=== PATIENT | male | born 1970 | race Hispanic/Latino ===

== ENCOUNTER 2017-08-20 21:59 | Emergency (ER) | payer SELFPAY ==
[~2017-08-20] VITALS: Ht 165.1 cm; Wt 107.0 kg
[~2017-08-20 21:59] MED LIST: ASPIR 8181 MG PO; COREG12.5 MG PO; GLIMEPIRIDE2 MG PO; LASIX40 MG PO; LISINOPRIL2.5 MG PO; METFORMIN HCL500 MG PO; SIMVASTATIN20 MG PO; THIAMINE HCL50 MG PO
--- OUTSIDE RECORDS SUMMARY | 2017-08-20 22:03 | XMS REPORT ---
Author Author [facility] Address Unknown Phone Unavailable Care Team Providers Care Laboratory Helper Name Role Phone DORI MAGUIRE Unavailable Unavailable Problems This patient has no known problems. Allergies, Adverse Reactions, Alerts This patient has no known allergies or adverse reactions. Medications This patient has no known medications. Results Test Description Test Time Test Comments Text Results Atomic Results Result Comments CT CHEST W [place] [address] Patient Name: YESENIA JONES MR #: [id number] : 1970 Age/Sex: 46/M Req #: [id number] [facility] Physician: Ordered by: DORI MAGUIRE MD Report #: [id number] Location: ER Room/Bed: Procedure: [id number] CT/CT CHEST W Exam Date: 02/28/17 Exam Time: 1109 REPORT STATUS: Signed PROCEDURE: CT scan of the chest WITH intravenous contrast, using [facility] protocol. TECHNIQUE: The chest was scanned utilizing a multidetector helical scanner from the lung apex through the level of the adrenal glands after the IV administration of 75 cc of Isovue 370, with special concentration in the pulmonary arteries. Coronal and sagittal multiplanar reformations were obtained. COMPARISON: None. INDICATIONS: SHORTNESS OF BREATH FINDINGS: Lines/tubes: None. Lungs and Airways: No filling defects in the main, right or left pulmonary artery to the segmental level to suggest pulmonary embolism. Mildly increased attenuation of the pulmonary parenchyma, with intralobular septal thickening (for example, series 3, image 19, and 79). Mild compressive atelectasis of the right lower lobe. Linear opacity in the lingula, likely reflect subsegmental atelectasis or scarring (series 3, image 62). No consolidation. No discrete pulmonary nodules. Pleura: Small right pleural effusion. Heart and mediastinum : Thyroid is unremarkable. Moderate cardiomegaly with enlargement of the left ventricle and atrium. No pericardial effusion. Aorta is non-aneurysmal. Main pulmonary artery is normal in caliber, measuring approximately 2.9 cm.. Lymph nodes: Mildly enlarged right upper paratracheal lymph node measuring 1.2 cm in short axis (series 2, image 27). Mild enlarged left lower paratracheal lymph node, measuring 1.1 cm in short axis (series 2, image 38) . Mildly enlarged subcarinal lymph node measuring 1.4 cm in short axis ( series 2 image 50). Abdomen: Limited contrast-enhanced views of the upper abdomen show no abnormality within the visualized liver, spleen, pancreas, or kidneys. The adrenal glands are normal. Bones: No acute bony abnormalities. Very mild degenerative disc changes in the thoracic spine. IMPRESSION: 1. no CT evidence of pulmonary embolism. 2. Findings in the lungs likely represent interstitial pulmonary edema in the setting of moderate cardiomegaly, enlarged left ventricle, and left pleural effusion. 3. Mild compressive atelectasis of the right lower lobe. No consolidation. 4. Mildly enlarged right upper, left lower and subcarinal lymph nodes, which are likely reactive. Laurie Castillo M.D. Dictated by: Laurie Castillo M.D. on 02/28/2017 at 12:41 Electronically approved by: Laurie Castillo M.D. on 02/28/2017 at 12:41 Dictated By: LAURIE CASTILLO MD [id number] Transcribed By: STEWART on 02/28/17 1241 COPY TO: DORI MAGUIRE MD CHEST SINGLE (PORTABLE) [place] [address] Patient Name: YESENIA JONES MR #: [id number] : 1970 Age/Sex: 46/M Req #: [id number] [facility] Physician: Ordered by: DORI MAGUIRE MD Report #: [id number] Location: ER Room/Bed: Procedure: [id number] DX/CHEST SINGLE (PORTABLE) Exam Date: 02/28/17 Exam Time: 924 REPORT STATUS: Signed PROCEDURE: CHEST SINGLE (PORTABLE) COMPARISON: None. INDICATIONS: SHORTNESS OF BREATH, CHEST PRESSURE FINDINGS: LUNGS: No consolidations or edema. PLEURA: No effusions or pneumothorax. HEART T MEDIASTINUM: The heart is prominent likely secondary to the technique. BONES T SOFT TISSUES: No acute findings. CONCLUSION: No acute thoracic abnormality. Rose Kilgore D.O. Dictated by: Rose Kilgore D.O. on 02/28/2017 at 10:05 Electronically approved by: Rose Kilgore D.O. on 02/28/2017 at 10:05 Dictated By: ROSE KILGORE DO 1005 Transcribed By: STEWART on 02/28/17 1005 COPY TO: DORI MAGUIRE MD
[2017-08-20] MEDS ORDERED: ALBUTEROL/IPRATROPIUM 3 ML NEB NEB ONE (22:15)
--- NOTE | 2017-08-20 23:44 | Diagnostic Imaging Report ---
EXAMINATION: CHEST SINGLE (PORTABLE) INDICATION: Shortness of breath COMPARISON: None FINDINGS: TUBES and LINES: None. LUNGS: Lungs are well inflated. Lungs are clear. There is no evidence of pneumonia or pulmonary edema. PLEURA: No pleural effusion or pneumothorax. HEART AND MEDIASTINUM: The cardiomediastinal silhouette is unremarkable. BONES AND SOFT TISSUES: No acute osseous lesion. Soft tissues are unremarkable. UPPER ABDOMEN: No free air under the diaphragm. IMPRESSION: No acute thoracic abnormality. Signed by: Dr. Moises Avelar M.D. on 08/20/2017 11:40 PM
[2017-08-20 23:59] LABS: BASOPHILS # (AUTO) 0.1 (0.0-0.1); BASOPHILS % 0.6 % (0.0-1.0); EOSINOPHILS # (AUTO) 0.1 (0.0-0.4); EOSINOPHILS % 1.4 % (0.0-6.0); HEMATOCRIT 39.7 % (38.2-49.6); HEMOGLOBIN 13.4 g/dL (14.0-18.0); LYMPHOCYTES # (AUTO) 3.1 (1.0-3.2); LYMPHOCYTES % 39.3 % (18.0-39.1); MEAN CORPUSCULAR HEMOGLOBIN 31.2 pg (28-32); MEAN CORPUSCULAR HGB CONC 33.8 g/dL (31-35); MEAN CORPUSCULAR VOLUME 92.5 fL (81-99); MONOCYTES # (AUTO) 1.2 (0.2-0.8); MONOCYTES % 15.5 % (4.4-11.3); NEUTROPHILS # (AUTO) 3.3 (2.1-6.9); NEUTROPHILS % 42.2 % (38.7-80.0); PLATELET COUNT 212 x10e3/uL (140-360); RED BLOOD COUNT 4.29 x10e6/uL (4.3-5.7); RED CELL DISTRIBUTION WIDTH 14.2 % (11.7-14.4)
[2017-08-21 00:20] LABS: ALANINE AMINOTRANSFERASE 48 IU/L (0-55); ALBUMIN 3.6 g/dL (3.5-5.0); ALKALINE PHOSPHATASE 117 IU/L (40-150); ANION GAP 17.2 mmol/L (8-16); BLOOD UREA NITROGEN 19 mg/dL (7-26); BUN/CREATININE RATIO 19 (6-25); CALCIUM 8.7 mg/dL (8.4-10.2); CARBON DIOXIDE 19 mmol/L (22-29); CHLORIDE 101 mmol/L (98-107); CREATINE KINASE 349 IU/L (30-200); CREATININE, SERUM 1.01 mg/dL (0.72-1.25); EST GLOMERULAR FILTRATION RATE > 60 ML/MIN (60-); GLUCOSE 278 mg/dL (74-118); POTASSIUM 4.2 mmol/L (3.5-5.1); SODIUM 133 mmol/L (136-145)
[2017-08-21 01:29] LABS: PLATELET ESTIMATE ADEQUATE; PLATELET MORPHOLOGY COMMENT NORMAL; RBC MORPHOLOGY COMMENT NORMAL
== END 2017-08-21 01:22 | disposition home or self-care (01) ==
LOC: EDBD 22:03 → ER 22:03
DX: R06.00 Dyspnea, unspecified (principal); R05 Cough; J20.9 Acute bronchitis, unspecified; I50.9 Heart failure, unspecified
CPT/HCPCS: 36415; 71045; 80053; 82550; 82553; 83880; 84484; 85025; 93005; 99284

== ENCOUNTER 2018-07-15 08:42 | Observation (INO) | payer SELFPAY ==
[~2018-07-15] VITALS: Ht 165.1 cm; Wt 106.3 kg
[2018-07-15] MEDS ORDERED: ASPIRIN 81 MG CHEW TAB PO ONE ×2 (09:30→15:00)
--- NOTE | 2018-07-15 09:46 | Diagnostic Imaging Report ---
EXAMINATION: PA and lateral views of the chest. COMPARISON: None CLINICAL HISTORY: Dyspnea DISCUSSION: Lines/tubes: None. Lungs: The lungs are well inflated and clear. No pneumonia or pulmonary edema. Pleura: There is no pleural effusion or pneumothorax. Heart and mediastinum: The cardiomediastinal silhouette is normal. Bones and soft tissues: No acute bony abnormalities. IMPRESSION: No acute cardiopulmonary abnormalities. Signed by: Dr. Spenser Baker M.D. on 07/15/2018 9:43 AM
[2018-07-15 10:33] LABS: AMPHETAMINES SCREEN,URINE NEGATIVE (NEGATIVE); BENZODIAZEPINES SCREEN,URINE NEGATIVE (NEGATIVE); PHENCYCLIDINE SCREEN,URINE NEGATIVE (NEGATIVE)
[2018-07-15 10:40] LABS: BASOPHILS # (AUTO) 0.1 (0.0-0.1); BASOPHILS % 0.8 % (0.0-1.0); EOSINOPHILS # (AUTO) 0.1 (0.0-0.4); HEMATOCRIT 42.7 % (38.2-49.6); HEMOGLOBIN 13.8 g/dL (14.0-18.0); LYMPHOCYTES % 24.5 % (18.0-39.1); MEAN CORPUSCULAR HEMOGLOBIN 30.1 pg (28-32); MEAN CORPUSCULAR HGB CONC 32.3 g/dL (31-35); MEAN CORPUSCULAR VOLUME 93.2 fL (81-99); MONOCYTES # (AUTO) 0.6 (0.2-0.8); MONOCYTES % 7.6 % (4.4-11.3); NEUTROPHILS # (AUTO) 5.4 (2.1-6.9); NEUTROPHILS % 65.1 % (38.7-80.0); PLATELET COUNT 292 x10e3/uL (140-360); RED BLOOD COUNT 4.58 x10e6/uL (4.3-5.7); RED CELL DISTRIBUTION WIDTH 14.3 % (11.7-14.4)
[2018-07-15 10:43] LABS: ALANINE AMINOTRANSFERASE 22 IU/L (0-55); ALBUMIN 3.5 g/dL (3.5-5.0); ALKALINE PHOSPHATASE 131 IU/L (40-150); ANION GAP 13.3 mmol/L (8-16); BLOOD UREA NITROGEN 14 mg/dL (7-26); BUN/CREATININE RATIO 14 (6-25); CALCIUM 8.6 mg/dL (8.4-10.2); CARBON DIOXIDE 22 mmol/L (22-29); CHLORIDE 103 mmol/L (98-107); CREATINE KINASE 132 IU/L (30-200); CREATININE, SERUM 0.98 mg/dL (0.72-1.25); EST GLOMERULAR FILTRATION RATE > 60 ML/MIN (60-); GLUCOSE 332 mg/dL (74-118); POTASSIUM 4.3 mmol/L (3.5-5.1); SODIUM 134 mmol/L (136-145)
[2018-07-15] MEDS ORDERED: INSULIN LISPRO 100 UNIT/1 ML 3ML VIAL SQ NR (11:46)
[2018-07-15] MEDS ORDERED: SODIUM CHLORIDE FLUSH 10 ML SYR INJ PRN (14:30)
[2018-07-15] MEDS ORDERED: ONDANSETRON HCL INJ 2MG/ML 2ML 2 MG/ML VIAL IV PRN (14:30)
[2018-07-15] MEDS ORDERED: DEXTROSE 50% SYRINGE 50 ML IV PRN (14:30)
[2018-07-15] MEDS ORDERED: NITROGLYCERIN 0.4 MG SUBL SL PRN (14:30)
[2018-07-15] MEDS ORDERED: MORPHINE SULFATE INJ 4 MG/ML INJ 1ML IV PRN (14:45)
[2018-07-15] MEDS: METOPROLOL TARTRATE 25 MG TAB PO SCH ×2 (14:53→21:00)
[2018-07-15 15:18] VITALS: BP 132/80
[2018-07-15 15:22] LABS: CREATINE KINASE MB 3.1 ng/mL (0-5.0)
[2018-07-15 15:30] VITALS: BP 132/80
[2018-07-15] MEDS: INSULIN LISPRO 100 UNIT/1 ML 3ML VIAL SQ SCH (17:55)
[2018-07-15] MEDS ORDERED: PNEUMOCOCCAL VACCINE POLYVALENT 23 MCG/0.5 ML VIAL IM SCH (18:21)
[2018-07-15] MEDS ORDERED: INFLUENZA VIRUS VAC SPLIT INJ 0.5 ML SYR IM SCH (18:21)
[2018-07-15] MEDS: FAMOTIDINE 20 MG TAB PO SCH (18:22)
[2018-07-15] MEDS ORDERED: ACETAMINOPHEN 325 MG TAB PO PRN (19:15)
[2018-07-15] MEDS ORDERED: METOPROLOL TARTRATE INJ 1 MG/ML VIAL IV PRN (19:15)
[2018-07-15 20:00] VITALS: BP 120/87
[2018-07-15] MEDS: SIMVASTATIN 20 MG TAB PO SCH (21:00)
[2018-07-16] VITALS (9 sets, daily range): BP systolic 109–154; BP diastolic 55–93
[2018-07-16] MEDS: INSULIN LISPRO 100 UNIT/1 ML 3ML VIAL SQ SCH ×5 (00:11→22:04)
--- NOTE | 2018-07-16 00:25 | NUR ---
Patient received lying in bed. No complaints of pain. Respirations even and unlabored. Fall precautions implemented. Patient instructed to call for assistance when needed. Call light within reach.
[2018-07-16 05:18] LABS: BASOPHILS # (AUTO) 0.1 (0.0-0.1); BASOPHILS % 0.6 % (0.0-1.0); EOSINOPHILS # (AUTO) 0.1 (0.0-0.4); EOSINOPHILS % 1.1 % (0.0-6.0); HEMATOCRIT 40.8 % (38.2-49.6); LYMPHOCYTES # (AUTO) 3.3 (1.0-3.2); LYMPHOCYTES % 31.4 % (18.0-39.1); MEAN CORPUSCULAR HEMOGLOBIN 30.2 pg (28-32); MEAN CORPUSCULAR HGB CONC 31.9 g/dL (31-35); MEAN CORPUSCULAR VOLUME 94.7 fL (81-99); MONOCYTES # (AUTO) 0.9 (0.2-0.8); MONOCYTES % 8.4 % (4.4-11.3); NEUTROPHILS % 57.6 % (38.7-80.0); PLATELET COUNT 283 x10e3/uL (140-360); RED BLOOD COUNT 4.31 x10e6/uL (4.3-5.7); RED CELL DISTRIBUTION WIDTH 14.3 % (11.7-14.4)
[2018-07-16 05:46] LABS: ANION GAP 10.3 mmol/L (8-16); BLOOD UREA NITROGEN 14 mg/dL (7-26); BUN/CREATININE RATIO 15 (6-25); CALCIUM 8.6 mg/dL (8.4-10.2); CARBON DIOXIDE 24 mmol/L (22-29); CHLORIDE 103 mmol/L (98-107); CREATININE, SERUM 0.93 mg/dL (0.72-1.25); EST GLOMERULAR FILTRATION RATE > 60 ML/MIN (60-); GLUCOSE 218 mg/dL (74-118); MAGNESIUM 2.1 MG/DL (1.3-2.1); POTASSIUM 4.3 mmol/L (3.5-5.1); SODIUM 133 mmol/L (136-145)
[2018-07-16 05:50] LABS: B-TYPE NATRIURETIC PEPTIDE2 315.2 pg/mL (0-100)
[2018-07-16 05:56] LABS: CREATINE KINASE MB 1.6 ng/mL (0-5.0)
[2018-07-16] MEDS: FAMOTIDINE 20 MG TAB PO SCH ×2 (06:07→17:44)
[2018-07-16 06:10] LABS: FREE T4 (FREE THYROXINE) 0.78 ng/dL (0.9-1.8); THYROID STIMULATING HORMONE 2.123 uIU/mL (0.350-4.940)
[2018-07-16 06:13] LABS: CHOL/HDL RATIO 4.2 (3.9-4.7)
[2018-07-16] MEDS ORDERED: GLIMEPIRIDE 2 MG TAB PO SCH (07:30)
[2018-07-16] MEDS ORDERED: CARVEDILOL 12.5 MG TAB PO SCH (09:00)
[2018-07-16] MEDS ORDERED: LISINOPRIL 2.5 MG TAB PO SCH (09:00)
[2018-07-16] MEDS ORDERED: THIAMINE HCL 100 MG TAB PO SCH (09:00)
--- NOTE | 2018-07-16 09:43 | NUR ---
GAVE PACKET OF INFORMATION WITH COMM[facility]ITY [facility] FOR ASSISTANCE WITH LOW TO NO INCOME TO PATIENT. RESOURCES THAT PATIENT MAY BE ABLE TO FOLLOW UP UPON DISCHARGE. PT EDUCATED ON EACH RESOURCE AND UNDERSTANDING HOW TO FOLLOW UP TO SEE IF QUALIFIED FOR EACH RESOURCE.
[2018-07-16] MEDS: METOPROLOL TARTRATE 25 MG TAB PO SCH (09:45)
[2018-07-16] MEDS: FUROSEMIDE 40 MG TAB PO SCH (09:45)
[2018-07-16] MEDS ORDERED: METFORMIN HCL 500 MG TAB CR PO SCH (09:45)
[2018-07-16] MEDS ORDERED: ALBUTEROL/IPRATROPIUM 3 ML NEB NEB PRN (09:45)
[2018-07-16] MEDS: ASPIRIN 81 MG ENTERIC COATED PO SCH (09:47)
--- NOTE | 2018-07-16 09:57 | NUR ---
SOCIAL WORK INITIAL ASSESSMENT Manager Stylist to bedside to discuss plan of care with patient/family. CM/SW role and care transitions discussed. Anticipated discharge plan discussed along with duration of care. CM/SW discussed patients right to make decisions in care. CM/SW work hours given. 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 Name and number was also written on the patients whiteboard. Patient verbalized understanding of discussion. CM will follow-up with ongoing discharge and transition of care needs.
[2018-07-16] MEDS: GUAIFENESIN 600MG/DEXTROMETHORPHAN 30MG TABSR PO SCH ×2 (10:44→21:57)
[2018-07-16] MEDS: THIAMINE HCL 100 MG TAB PO SCH (10:44)
[2018-07-16] MEDS: AZITHROMYCIN 500MG/NS 250 ML 250 ML IV SCH (10:44)
[2018-07-16] MEDS: SITAGLIPTIN 100 MG TAB PO SCH ×2 (10:44→17:44)
[2018-07-16] MEDS: NICOTINE 14 MG/EA PATCH TOP SCH (11:44)
[2018-07-16] MEDS: CEFTRIAXONE SOD 1 GM/NS 50 ML 50 ML IV SCH (12:32)
--- NOTE | 2018-07-16 16:18 | Consultation ---
DATE OF CONSULTATION: Pulmonary Consultation. Patient of Dr. Almaraz. HISTORY OF PRESENT ILLNESS: Charming, but unfortunate 47-year-old gentleman ran out of his medicines for congestive heart failure. He has a history of dilated cardiomyopathy diagnosed on 03/13/2017 with ejection fraction of 20%. History of hypertension, diabetes, stroke, presumed obstructive sleep apnea. He became short of breath when he ran out of his medications. ALLERGIES: NO KNOWN ALLERGIES. MEDICATIONS: Have included metformin, aspirin, Lasix, potassium. He has been discharged home on Amaryl, metformin, lisinopril, thiamin, Coreg, Lasix, Micro-K, aspirin, and simvastatin. Catheterization could not be performed in the past because the labor standards director was not functioning at that time. PHYSICAL EXAMINATION: GENERAL: He is a burly white male, in no acute distress, looking his stated age. VITAL SIGNS: Temperature 98.6, pulse 90, respirations 18, and blood pressure 131/65. HEAD: Normocephalic, atraumatic. NECK: . LUNGS: Diminished breath sounds, but clear. HEART: Regular rhythm. ABDOMEN: Umbilical hernia. EXTREMITIES: Nonedematous. IMPRESSION: URI, congestive heart failure, diabetes, noncompliance due to economic reasons. The patient denies smoking. He is to admit to running out of medicine. He has no known allergies. Did smoke in the past, drinking less alcohol, presumed thiamin, therapy for congestive heart failure as per . Hemoglobin again confirming noncompliant with medical regimen. Hemoglobin . Cholesterol is 154. Thank you for this kind referral. MD JOSE Montana/LUIS /[id number]
[2018-07-16] MEDS ORDERED: ENOXAPARIN SOD INJ 40 MG/0.4 ML SYR SC SCH (17:00)
[2018-07-16] MEDS: CARVEDILOL 12.5 MG TAB PO SCH (17:44)
--- NOTE | 2018-07-16 18:18 | Consultation ---
DATE OF CONSULTATION: 07/16/2018 Cardiology Consultation REASON FOR CONSULTATION: Congestive heart failure. HISTORY OF PRESENT ILLNESS: A 47-year-old gentleman, who is obese, diabetic, hypertensive, was known with severe left ventricular dysfunction. The patient was at this institution in February 2017, where at that time x-ray showed cardiomegaly, echocardiogram showed low ejection fraction. The patient was given of the failure therapy, aspirin. The patient stopped all his medications "after he left the hospital." The patient came to this institution, complaining of worsening shortness of breath. There was no chest pain. There was no orthopnea and no paroxysmal nocturnal dyspnea. The is no pleuritic nor pericardiac chest pain. "I cannot breath." The patient's BNP was mildly elevated, that is 315. His cardiac enzymes are normal. The patient admitted for further management. HOME MEDICATIONS: Not taking any. ALLERGIES: NONE. PAST MEDICAL HISTORY: 1. Obesity. 2. Hypertension. 3. Diabetes mellitus. 4. Congestive heart failure. 5. Arthroscopic knee surgery. SOCIAL HISTORY: He smokes 5 cigarettes a day. He drinks alcohol. He denied using any drugs, but his urine showed methamphetamine in his urine. FAMILY HISTORY: No family history of premature coronary artery disease. PHYSICAL EXAMINATION: VITAL SIGNS: Height of 5 feet 5 inches, weight of 230 pounds. Blood pressure 130/90, heart rate of 90, respiratory rate of 18, afebrile. HEENT: Pupils are reactive. NECK: No elevation of jugular venous pulsation. CHEST: Decreased lung expansion. HEART: PMI in fifth left intercoastal space. Normal first and second heart sounds. ABDOMEN: Obese. EXTREMITIES: Minimal edema. NEUROLOGIC: Nonfocal. LABORATORY DATA: BUN of 14, creatinine of 0.9. Hemoglobin of 13, hematocrit of 40%, white blood cell count of 10.4. Chest x-ray by report showed clear lung davidson and no cardiomegaly. BNP 315. TSH of 2.1. Cardiac enzymes are normal. Triglycerides of 280, cholesterol 154, HDL is 37, LDL is 61. EKG showing sinus rhythm with occasional PVCs, no specific ST changes. IMPRESSION AND PLAN: 1. The patient admitted with progressive worsening shortness of breath. He is known with very poor ejection fraction from this admission. 2. Obesity. 3. Diabetes mellitus. 4. Hypertension. The patient is also poorly compliant. Cardiac augustin, my recommendation would be Coreg, lisinopril, Lasix, aspirin, deep venous thrombosis prophylaxis. Stopping smoking and drinking. I agree with thiamine give him. Regarding his diabetes mellitus, I will leave that to the primary team, but definitely the patient should not be given metformin. The patient needs to be compliant with his medication, compliant with followup. MD SHANITA Parks/LUIS /[id number]
[2018-07-16] MEDS: ALBUTEROL/IPRATROPIUM 3 ML NEB NEB SCH (20:00)
[2018-07-16] MEDS: SIMVASTATIN 20 MG TAB PO SCH (21:57)
[2018-07-17] VITALS: BP 110/84
[2018-07-17] MEDS: ALBUTEROL/IPRATROPIUM 3 ML NEB NEB SCH ×2 (00:30→07:00)
[2018-07-17 04:00] VITALS: BP 114/62
[2018-07-17] MEDS: FAMOTIDINE 20 MG TAB PO SCH (05:46)
[2018-07-17 05:52] LABS: BASOPHILS # (AUTO) 0.1 (0.0-0.1); BASOPHILS % 0.5 % (0.0-1.0); EOSINOPHILS # (AUTO) 0.1 (0.0-0.4); EOSINOPHILS % 1.2 % (0.0-6.0); HEMATOCRIT 40.9 % (38.2-49.6); LYMPHOCYTES % 30.2 % (18.0-39.1); MEAN CORPUSCULAR HEMOGLOBIN 29.7 pg (28-32); MEAN CORPUSCULAR HGB CONC 31.8 g/dL (31-35); MEAN CORPUSCULAR VOLUME 93.6 fL (81-99); MONOCYTES # (AUTO) 0.9 (0.2-0.8); MONOCYTES % 9.1 % (4.4-11.3); NEUTROPHILS # (AUTO) 5.7 (2.1-6.9); NEUTROPHILS % 58.1 % (38.7-80.0); PLATELET COUNT 276 x10e3/uL (140-360); RED BLOOD COUNT 4.37 x10e6/uL (4.3-5.7); RED CELL DISTRIBUTION WIDTH 14.3 % (11.7-14.4)
[2018-07-17 06:16] LABS: ANION GAP 7.7 mmol/L (8-16); BLOOD UREA NITROGEN 13 mg/dL (7-26); BUN/CREATININE RATIO 13 (6-25); CALCIUM 8.3 mg/dL (8.4-10.2); CARBON DIOXIDE 27 mmol/L (22-29); CHLORIDE 99 mmol/L (98-107); CREATININE, SERUM 0.98 mg/dL (0.72-1.25); EST GLOMERULAR FILTRATION RATE > 60 ML/MIN (60-); GLUCOSE 208 mg/dL (74-118); MAGNESIUM 1.9 MG/DL (1.3-2.1); POTASSIUM 3.7 mmol/L (3.5-5.1); SODIUM 130 mmol/L (136-145)
[2018-07-17 08:12] VITALS: BP 145/67
[2018-07-17] MEDS: SITAGLIPTIN 100 MG TAB PO SCH (08:17)
[2018-07-17] MEDS: FUROSEMIDE 40 MG TAB PO SCH (08:17)
[2018-07-17] MEDS: GUAIFENESIN 600MG/DEXTROMETHORPHAN 30MG TABSR PO SCH (08:17)
[2018-07-17] MEDS: ASPIRIN 81 MG ENTERIC COATED PO SCH (08:17)
[2018-07-17] MEDS: CARVEDILOL 12.5 MG TAB PO SCH (08:17)
[2018-07-17] MEDS: THIAMINE HCL 100 MG TAB PO SCH (08:18)
[2018-07-17] MEDS: NICOTINE 14 MG/EA PATCH TOP SCH (08:18)
[2018-07-17] MEDS ORDERED: LISINOPRIL 2.5 MG TAB PO SCH (09:00)
[2018-07-17] MEDS: INSULIN LISPRO 100 UNIT/1 ML 3ML VIAL SQ SCH (09:05)
[2018-07-17] MEDS: AZITHROMYCIN 500MG/NS 250 ML 250 ML IV SCH (09:53)
[2018-07-17] MEDS ORDERED: COREG12.5 MG PO (10:00)
[2018-07-17] MEDS ORDERED: LISINOPRIL2.5 MG PO (10:00)
[2018-07-17] MEDS ORDERED: METFORMIN HCL500 MG PO (10:00)
[2018-07-17] MEDS ORDERED: CEFUROXIME500 MG PO (10:00)
[2018-07-17] MEDS ORDERED: VITAMIN B-1100 MG PO (10:00)
[2018-07-17] MEDS ORDERED: JANUVIA100 MG PO (10:00)
[2018-07-17] MEDS ORDERED: ZITHROMAX500 MG PO (10:00)
[2018-07-17] MEDS ORDERED: MUCINEX DM ER1 EACH PO (10:00)
[2018-07-17] MEDS ORDERED: ASPIRIN EC81 MG PO (10:00)
[2018-07-17] MEDS ORDERED: SIMVASTATIN20 MG PO (10:00)
[2018-07-17] MEDS ORDERED: FUROSEMIDE40 MG PO (10:00)
[2018-07-17] MEDS ORDERED: POTASSIUM CITR10 MEQ PO (10:01)
[2018-07-17] MEDS: CEFTRIAXONE SOD 1 GM/NS 50 ML 50 ML IV SCH (11:03)
--- NOTE | 2018-07-18 14:39 | Discharge Summary ---
ADMISSION DIAGNOSES: Acute on chronic systolic congestive heart failure, bronchopneumonia, hypertension, hyperlipidemia, type 2 diabetes, and obesity. DISCHARGE DIAGNOSES: Acute on chronic systolic congestive heart failure, bronchopneumonia, hypertension, hyperlipidemia, type 2 diabetes, and obesity. HISTORY: The patient has a history of type 2 diabetes, chronic systolic CHF, hypertension, hyperlipidemia, and obstructive sleep apnea. SURGICAL HISTORY: Noncontributory. FAMILY HISTORY: Noncontributory. SOCIAL HISTORY: The patient admits to occasional alcohol use and occasional tobacco use. He smokes less than 1 pack per week. HOSPITAL COURSE: A 47-year-old male complains of shortness of breath and dyspnea on exertion that began last week. He admits to associated productive cough and chest pressure. The pressure is substernal and radiates to the left axilla. He has associated dizziness, but denies diaphoresis. 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 Symptoms improve with rest and worsen with exertion. He has not filled his medications since February 2018 due to finances. On admission, the patient had an echo that showed EF of less than 30%. EKG was sinus rhythm with PVCs. Chest x-ray was negative. BNP was 114. The patient was started on Lasix and blood pressure pills. His urine drug screen came back positive for methamphetamines, but the patient denies use of any drugs. Troponins were negative x4. Cardiology was consulted, who said okay to discharge the patient with no intervention. The patient will discharge home with new prescription for aspirin, Zithromax, Coreg, Ceftin, Lasix, Mucinex, lisinopril, metformin, potassium, simvastatin, Januvia, and thiamine. Vital signs stable, patient afebrile. The patient understands discharge instructions and agrees to plan. Dictated by Liv West NP MD MARTÍN Mattson/MODRichard /[id number]
== END 2018-07-17 12:09 | disposition home or self-care (01) ==
LOC: ER 08:42 → ERHOLD 14:33 → IMCU 15:26
PROVIDERS: ADMIT Internal Medicine; ATTEND Internal Medicine
DX: I11.0 Hypertensive heart disease with heart failure (principal); I50.23 Acute on chronic systolic (congestive) heart failure; J18.0 Bronchopneumonia, unspecified organism; G47.33 Obstructive sleep apnea (adult) (pediatric); E11.9 Type 2 diabetes mellitus without complications; Z79.4 Long term (current) use of insulin; E66.9 Obesity, unspecified; Z68.39 Body mass index [BMI] 39.0-39.9, adult; Z91.19 Patient's noncompliance with other medical treatment and regimen; Z91.14 Patient's other noncompliance with medication regimen; I42.0 Dilated cardiomyopathy; K42.9 Umbilical hernia without obstruction or gangrene; Z59.9 Problem related to housing and economic circumstances, unspecified; F17.210 Nicotine dependence, cigarettes, uncomplicated; F10.10 Alcohol abuse, uncomplicated
CPT/HCPCS: 36415 ×3; 71046; 80048 ×2; 80053; 80061; 80307; 82550 ×2; 82553 ×2; 82948 ×3; 83036; 83735 ×2; 83880 ×3; 84439; 84443; 84484 ×2; 85025 ×3; 93005; 93306; 94640; 94660 ×2; 99284; G0378 ×3; J0456 ×2; J0696 ×2; J1650; J2270; J3411 ×2

== ENCOUNTER 2019-01-26 12:47 | Observation (INO) | payer SELFPAY ==
[~2019-01-26] VITALS: Ht 165.1 cm; Wt 94.1 kg
[~2019-01-26 12:47] MED LIST changes: +ASPIRIN EC81 MG PO; +CEFUROXIME500 MG PO; +FUROSEMIDE40 MG PO; +JANUVIA100 MG PO; +MUCINEX DM ER1 EACH PO; +POTASSIUM CITR10 MEQ PO; +VITAMIN B-1100 MG PO; +ZITHROMAX500 MG PO
[2019-01-26] MEDS ORDERED: ASPIRIN 81 MG CHEW TAB PO NR (13:15)
--- NOTE | 2019-01-26 13:23 | NUR ---
3 ATTEMPTS AT IV; UNSUCCESSFUL. SENIOR LINUX ENGINEER NOTIFIED
[2019-01-26 13:37] LABS: BASOPHILS # (AUTO) 0.1 (0.0-0.1); EOSINOPHILS # (AUTO) 0.4 (0.0-0.4); EOSINOPHILS % 4.7 % (0.0-6.0); HEMATOCRIT 45.1 % (38.2-49.6); HEMOGLOBIN 15.1 g/dL (14.0-18.0); LYMPHOCYTES # (AUTO) 1.7 (1.0-3.2); LYMPHOCYTES % 18.8 % (18.0-39.1); MEAN CORPUSCULAR HEMOGLOBIN 30.8 pg (28-32); MEAN CORPUSCULAR HGB CONC 33.5 g/dL (31-35); MEAN CORPUSCULAR VOLUME 91.9 fL (81-99); MONOCYTES # (AUTO) 0.7 (0.2-0.8); NEUTROPHILS # (AUTO) 6.1 (2.1-6.9); NEUTROPHILS % 67.1 % (38.7-80.0); PLATELET COUNT 260 x10e3/uL (140-360); RED BLOOD COUNT 4.91 x10e6/uL (4.3-5.7); RED CELL DISTRIBUTION WIDTH 14.2 % (11.7-14.4)
[2019-01-26 13:51] LABS: INR 0.92; PROTHROMBIN TIME 12.9 seconds (11.9-14.5)
[2019-01-26 13:52] LABS: PARTIAL THROMBOPLASTIN TIME 27.2 seconds (23.8-35.5)
[2019-01-26 14:01] LABS: ALANINE AMINOTRANSFERASE 18 IU/L (0-55); ALBUMIN 3.4 g/dL (3.5-5.0); ALBUMIN/GLOBULIN RATIO 0.9 (0.8-2.0); ALKALINE PHOSPHATASE 90 IU/L (40-150); ANION GAP 11.1 mmol/L (8-16); BLOOD UREA NITROGEN 15 mg/dL (7-26); BUN/CREATININE RATIO 18 (6-25); CARBON DIOXIDE 24 mmol/L (22-29); CHLORIDE 103 mmol/L (98-107); CREATINE KINASE 64 IU/L (30-200); CREATININE, SERUM 0.85 mg/dL (0.72-1.25); EST GLOMERULAR FILTRATION RATE > 60 ML/MIN (60-); GLUCOSE 159 mg/dL (74-118); POTASSIUM 4.1 mmol/L (3.5-5.1); SODIUM 134 mmol/L (136-145)
--- NOTE | 2019-01-26 14:29 | Diagnostic Imaging Report ---
EXAMINATION: CHEST SINGLE (PORTABLE) INDICATION: ^ERMD ORDER ^[id number] ^1345 ^Y COMPARISON: Chest radiograph 07/15/2018 FINDINGS: AP view TUBES and LINES: None. LUNGS: Lungs are well inflated. Lungs are clear. There is no evidence of pneumonia or pulmonary edema. PLEURA: No pleural effusion or pneumothorax. HEART AND MEDIASTINUM: The cardiomediastinal silhouette is unremarkable.. BONES AND SOFT TISSUES: No acute osseous lesion. Soft tissues are unremarkable. UPPER ABDOMEN: No free air under the diaphragm. IMPRESSION: No acute thoracic abnormality. Signed by: Dr. Larissa Trammell M.D. on 01/26/2019 2:26 PM
[2019-01-26] MEDS ORDERED: ONDANSETRON HCL INJ 2MG/ML 2ML 2 MG/ML VIAL IV PRN (15:00)
[2019-01-26] MEDS ORDERED: NITROGLYCERIN 0.4 MG SUBL SL PRN (15:00)
[2019-01-26] MEDS ORDERED: MORPHINE SULFATE 2 MG/ML SYR 1ML IV PRN (15:00)
[2019-01-26] MEDS ORDERED: DEXTROSE 50% SYRINGE 50 ML IV PRN (15:00)
--- NOTE | 2019-01-26 15:26 | NUR ---
RECEIVED REPORT FROM SIENNA IN ER. AWAITING FOR PT TO ARRIVE TO FLOOR
[2019-01-26 15:36] VITALS: BP 123/66
--- NOTE | 2019-01-26 15:37 | NUR ---
RECEIVED PT FROM ER AA0X3 PT STATES PAIN TO CHEST HAS SUBSIDED TO A 3.10 WITH THE ADMINISTRATION OF PO ASPIRIN IN ER PT STATES HIS PAIN DOES NOT RADIATE BUT COMES AND GOES AND IS FELT IN THE UPPER LEFT CHEST AREA PT STATES AT THIS TIME, PAIN IS COMFORTABLE IV TO THE LEFT HAND 20 SL PATENT AND INTACT TELEMETRY ON RUNNING SR WITH PVC WILL CONTINUE TO MONITOR PT CLOSELY, SIDE RAILSX2 ,BED WHEELS LOCKED, CALL LIGHT IS WITHIN EASY REACH INSTRUCTED TO CALL FOR ASSISTANCE IF NEEDED
[2019-01-26] MEDS: FAMOTIDINE 20 MG/2 ML VIAL IV SCH (16:06)
[2019-01-26] MEDS: METOPROLOL TARTRATE 25 MG TAB PO SCH (16:06)
[2019-01-26] MEDS: INSULIN LISPRO 100 UNIT/1 ML 3ML VIAL SQ SCH ×2 (16:26→21:00)
[2019-01-26 17:15] VITALS: BP 122/81
[2019-01-26 19:05] LABS: CREATINE KINASE MB 1.4 ng/mL (0-5.0)
--- NOTE | 2019-01-26 19:10 | NUR ---
BED SIDE SHIFT REPORT TAKEN FROM MORNING RN.PT IS STABLE.
[2019-01-26 20:00] VITALS: BP 104/70
[2019-01-26 21:25] VITALS: BP 104/70
[2019-01-27] VITALS (8 sets, daily range): BP systolic 103–126; BP diastolic 65–78
--- NOTE | 2019-01-27 00:56 | NUR ---
RESTING WELL.NO CHEST PAIN VOICED.BLOOD MARIAELENA AND SENT TO THE LAB.BED LOCKED AND IN LOWEST POSITION.PHONE AND CALL LIGHT WITHIN REACH.INSTRUCTED TO CALL FOR ASSISTANCE NEEDED.
[2019-01-27] MEDS: FAMOTIDINE 20 MG/2 ML VIAL IV SCH (02:30)
[2019-01-27] MEDS: METOPROLOL TARTRATE 25 MG TAB PO SCH ×2 (04:00→15:00)
[2019-01-27 06:50] LABS: BASOPHILS # (AUTO) 0.1 (0.0-0.1); BASOPHILS % 1.2 % (0.0-1.0); EOSINOPHILS # (AUTO) 0.4 (0.0-0.4); EOSINOPHILS % 4.2 % (0.0-6.0); HEMATOCRIT 46.6 % (38.2-49.6); HEMOGLOBIN 15.2 g/dL (14.0-18.0); LYMPHOCYTES # (AUTO) 2.4 (1.0-3.2); LYMPHOCYTES % 25.8 % (18.0-39.1); MEAN CORPUSCULAR HEMOGLOBIN 30.6 pg (28-32); MEAN CORPUSCULAR HGB CONC 32.6 g/dL (31-35); MEAN CORPUSCULAR VOLUME 93.8 fL (81-99); MONOCYTES # (AUTO) 0.8 (0.2-0.8); MONOCYTES % 8.3 % (4.4-11.3); NEUTROPHILS # (AUTO) 5.6 (2.1-6.9); PLATELET COUNT 265 x10e3/uL (140-360); RED BLOOD COUNT 4.97 x10e6/uL (4.3-5.7); RED CELL DISTRIBUTION WIDTH 14.1 % (11.7-14.4)
[2019-01-27 07:07] LABS: ALANINE AMINOTRANSFERASE 23 IU/L (0-55); ALBUMIN 3.2 g/dL (3.5-5.0); ALBUMIN/GLOBULIN RATIO 0.9 (0.8-2.0); ALKALINE PHOSPHATASE 87 IU/L (40-150); ANION GAP 12.3 mmol/L (8-16); BLOOD UREA NITROGEN 14 mg/dL (7-26); BUN/CREATININE RATIO 14 (6-25); CALCIUM 9.3 mg/dL (8.4-10.2); CARBON DIOXIDE 27 mmol/L (22-29); CHLORIDE 102 mmol/L (98-107); CHOL/HDL RATIO 6.1 (3.9-4.7); CHOLESTEROL 176 MD/DL (0-199); CREATININE, SERUM 1.01 mg/dL (0.72-1.25); EST GLOMERULAR FILTRATION RATE > 60 ML/MIN (60-); GLUCOSE 123 mg/dL (74-118); HDL CHOLESTEROL 29 MG/DL (40-60); LDL CHOLESTEROL 120 MG/DL (60-130); POTASSIUM 4.3 mmol/L (3.5-5.1); SODIUM 137 mmol/L (136-145); TRIGLYCERIDES 137 MG/DL (0-149)
--- NOTE | 2019-01-27 07:10 | NUR ---
DR JOHNSON DOING ROUNDS.RECEIVED NEW ORDERS.BEDSIDE SHIFT REPORT GIVEN TO THE ONCOMING RN.STABLE CONDITION.
[2019-01-27 07:15] LABS: CREATINE KINASE 49 IU/L (30-200)
[2019-01-27] MEDS: ASPIRIN 81 MG ENTERIC COATED PO SCH (08:03)
[2019-01-27] MEDS: INSULIN LISPRO 100 UNIT/1 ML 3ML VIAL SQ SCH ×4 (08:03→20:51)
[2019-01-27] MEDS: LISINOPRIL 2.5 MG TAB PO SCH (09:00)
[2019-01-27] MEDS ORDERED: GUAIFENESIN 600MG/DEXTROMETHORPHAN 30MG TABSR PO PRN (09:00)
[2019-01-27] MEDS ORDERED: ASPIRIN 81 MG ENTERIC COATED PO SCH (09:00)
[2019-01-27 09:01] LABS: CREATINE KINASE 49 IU/L (30-200)
[2019-01-27] MEDS: THIAMINE HCL 100 MG TAB PO SCH (09:45)
[2019-01-27] MEDS: CARVEDILOL 12.5 MG TAB PO SCH ×2 (09:45→15:55)
[2019-01-27] MEDS: SITAGLIPTIN 100 MG TAB PO SCH ×2 (09:45→17:06)
[2019-01-27] MEDS: FUROSEMIDE 40 MG TAB PO SCH (09:45)
[2019-01-27] MEDS: METFORMIN HCL 500 MG TAB PO SCH ×2 (09:45→17:06)
[2019-01-27] MEDS: POTASSIUM CITRATE 10 MEQ TAB PO SCH (09:45)
--- NOTE | 2019-01-27 11:56 | History and Physical ---
REASON FOR ADMISSION: The patient is a 48-year-old male, who comes in with chest pain. HISTORY OF PRESENT ILLNESS: The patient is a 48-year-old gentleman, who came in with chest pain. Chest pain was exacerbated on exertion. The patient noted that the chest pain was left-sided, comes and goes. Last night, the patient's chest pain lasted for more than an hour. The patient came in and was admitted for chest pain. PAST MEDICAL HISTORY: History of hypertension, history of hyperlipidemia, history of congestive heart failure, history of chronic systolic heart failure, has history of obstructive sleep apnea, history of type 2 diabetes mellitus, and history of morbid obesity. The patient's last admission, the patient had an EF of less than 30%. EKG was sinus rhythm with PVCs. Chest x-ray was negative. BNP was 114. The patient was started on Lasix and other blood pressure medications. The patient's last drug screen came back for methamphetamines and also the patient was negative for troponin. Cardiology consult with Dr. Brown was done at that time and the patient was discharged home on Coreg, Lasix, lisinopril, metformin, potassium, simvastatin, Januvia, and thiamine. PAST SURGICAL HISTORY: Includes arthroscopic knee surgery. SOCIAL HISTORY: The patient still smokes. Drinks alcohol. FAMILY HISTORY: Positive for coronary artery disease. MEDICATIONS: At this time, the patient takes: 1. Aspirin 81 mg daily. 2. Carvedilol 12.5 mg twice a day. 3. Lasix 40 mg daily. 4. Mucinex 1 tablet each every 6 hours. 5. Lisinopril 2.5 mg. 6. Metformin 500 mg. 7. Potassium citrate 10 mg daily. 8. Simvastatin 20 mg. 9. Januvia 100 mg daily. 10. The patient has always taken thiamine 100 mg daily. ALLERGIES: NO DRUG ALLERGIES NOTED. REVIEW OF SYSTEMS: Positive for chest pain as mentioned above. No shortness of breath. No nausea, vomiting, or diarrhea. No constipation. No rectal bleeding. No hematochezia. No hematemesis either. PHYSICAL EXAMINATION: GENERAL: The patient is alert and oriented x3. HEENT: Normocephalic, atraumatic. The patient is morbidly obese. CVS: S1 and S2 normal. Regular rhythm. ABDOMEN: Nontender, nondistended. EXTREMITIES: No clubbing, no cyanosis, and trace edema. LABORATORY VALUES: Initial white count is 9.13, hemoglobin of 15.1, hematocrit 45.1, platelet count is 260. Chemistry shows sodium of 137, potassium 4.3, BUN of 14, creatinine 1.01. The patient's glucose is 152, LDL was 120, HDL was 29, total cholesterol of 6.1. ASSESSMENT: 1. Chest pain, rule out acute coronary syndrome. 2. History of congestive heart failure with low ejection fraction. 3. Hypertension. 4. Hyperlipidemia. 5. Diabetes mellitus. PLAN: The patient to restart his home medication, which I doubt the patient is taking. We will continue monitoring the patient's lab troponins and trended. The patient also to get echocardiogram to evaluate his current ejection fraction. The patient has been counseled against smoking and also against drug abuse, which he denies at this time. Further recommendation per clinical course. We will continue to monitor the patient and also recommendation on Cardiology. MD MICHELLE Younger/LUIS /[id number]
--- NOTE | 2019-01-27 15:54 | NUR ---
LEFT MD WITT A DETAILED VOICEMAIL REGARDING PT EMAR BEING ON TWO BETA BLOCKERS AND CURRENT BP NONE GIVEN FOR AFTERNOON SHIFT WILL AWAIT GRIP WRAPPER BACK FOR FURTHER ORDERS ON MEDICATION CLARIFICATION
[2019-01-27] MEDS: FAMOTIDINE 20 MG TAB PO SCH (17:06)
--- NOTE | 2019-01-27 19:10 | NUR ---
Received the patient from misael Fatima.stable condition.
[2019-01-27] MEDS ORDERED: SIMVASTATIN 20 MG TAB PO SCH ×2 (21:00)
[2019-01-27] MEDS ORDERED: ACETAMINOPHEN 325 MG TAB PO PRN (21:30)
--- NOTE | 2019-01-27 22:30 | NUR ---
Has headache.notified to .received new orders.no resp distress.no chest pain voiced.bed locked and in lowest position. bed locked and in lowest position.phone and call light within reach.instructed to call for assistance as needed.
[2019-01-28 00:46] VITALS: BP 116/56
[2019-01-28 04:52] VITALS: BP 110/73
[2019-01-28 05:56] LABS: BASOPHILS # (AUTO) 0.1 (0.0-0.1); BASOPHILS % 0.9 % (0.0-1.0); EOSINOPHILS # (AUTO) 0.6 (0.0-0.4); EOSINOPHILS % 5.5 % (0.0-6.0); HEMATOCRIT 46.1 % (38.2-49.6); HEMOGLOBIN 15.2 g/dL (14.0-18.0); LYMPHOCYTES # (AUTO) 3.1 (1.0-3.2); LYMPHOCYTES % 28.4 % (18.0-39.1); MEAN CORPUSCULAR HEMOGLOBIN 30.6 pg (28-32); MEAN CORPUSCULAR VOLUME 92.9 fL (81-99); MONOCYTES # (AUTO) 1.1 (0.2-0.8); MONOCYTES % 10.1 % (4.4-11.3); NEUTROPHILS % 54.6 % (38.7-80.0); PLATELET COUNT 270 x10e3/uL (140-360); RED BLOOD COUNT 4.96 x10e6/uL (4.3-5.7); RED CELL DISTRIBUTION WIDTH 14.2 % (11.7-14.4)
[2019-01-28 06:26] LABS: ANION GAP 14.1 mmol/L (8-16); CALCIUM 9.4 mg/dL (8.4-10.2); CREATININE, SERUM 1.29 mg/dL (0.72-1.25); POTASSIUM 4.1 mmol/L (3.5-5.1)
--- NOTE | 2019-01-28 07:10 | NUR ---
Bed side shift report given to the oncoming rn.stable condition.
[2019-01-28 08:07] VITALS: BP 111/82
--- NOTE | 2019-01-28 08:45 | Progress Note ---
DATE: SUBJECTIVE: This patient comes in with inability to take medication, has not been taking his medication, admitted for chest pain and chronic congestive heart failure. The patient's troponins have been trended to be negative. The patient is feeling well. No complaints. No chest pain. No shortness of breath, and the patient has been feeling well after the medicines have been started. Cardiology has seen the patient has cleared him to go home. OBJECTIVE: VITAL SIGNS: Temperature is 97.3, pulse of 77, respirations of 20, blood pressure is 110/73, and pulse oximetry of 96% on room air. HEENT: Normocephalic and atraumatic. CVS: S1 and S2 normal. Regular rate and rhythm. ABDOMEN: Nontender and nondistended. EXTREMITIES: No clubbing. No cyanosis and/or no edema. LABORATORY VALUES: Chemistries are pending today and Hematology. White count is 11,000, hemoglobin of 13.2, and hematocrit of 46.1. Coags are normal. The patient is to be discharged to home today. MEDICATIONS: Medications on discharge include; simvastatin, , metformin, potassium citrate, furosemide 40 mg daily, lisinopril 2.5 mg and carvedilol 6.25 mg daily. ASSESSMENT AND PLAN: The patient to be followed up with primary care physician in 1 to 2 days and Cardiology in 1 to 2 days. The patient will be given 3 days of prescriptions with one refills on each of them. The patient has been given again clear counseling on taking the medicines on right time and also following up with the physicians. Daily weight and also salt restrictions have been instituted and given to the patient as instruction. The patient will also need to restrain from smoking and also for restrain from drug habits. This has been clearly stated to the patient. For further information look into the chart. MD MICHELLE Younger/LUIS /[id number]
[2019-01-28] MEDS: METFORMIN HCL 500 MG TAB PO SCH (09:08)
[2019-01-28] MEDS: CARVEDILOL 12.5 MG TAB PO SCH (09:08)
[2019-01-28] MEDS: LISINOPRIL 2.5 MG TAB PO SCH (09:08)
[2019-01-28] MEDS: FAMOTIDINE 20 MG TAB PO SCH (09:08)
[2019-01-28] MEDS: POTASSIUM CITRATE 10 MEQ TAB PO SCH (09:08)
[2019-01-28] MEDS: ASPIRIN 81 MG ENTERIC COATED PO SCH (09:08)
[2019-01-28] MEDS: SITAGLIPTIN 100 MG TAB PO SCH (09:08)
[2019-01-28] MEDS: THIAMINE HCL 100 MG TAB PO SCH (09:08)
[2019-01-28] MEDS: FUROSEMIDE 40 MG TAB PO SCH (09:08)
[2019-01-28] MEDS ORDERED: ONDANSETRON HCL 4 MG ORAL DISINTEGRATING TAB PO PRN (09:15)
--- NOTE | 2019-01-28 14:52 | Consultation ---
DATE OF CONSULTATION: 01/28/2019 REASON FOR CONSULTATION: Chest pain. CHIEF COMPLAINT: Chest pain. HISTORY OF PRESENT ILLNESS: This is a 48-year-old male with history of systolic heart failure, hypertension, hyperlipidemia, diabetes, drug use, and noncompliant. The patient presents to [facility] with complaints of chest pain. Cardiology was consulted to evaluate the patient. The patient is seen in room, in no acute distress, reports having chest pain for the past several weeks, off and on, with and without activities. Reports he has stopped taking his medication for several weeks because he ran out. On admission, the patient's blood pressure 174/120. Cardiac enzymes x4 negative. EKG without any changes suggestive of acute event. The patient reports he feels much better and is ready to go home. I had a long discussion with the patient regarding medication compliance. PAST MEDICAL HISTORY: 1. CHF. 2. Hypertension. 3. Hyperlipidemia. 4. Diabetes. 5. Drug use. 6. History of noncompliance. PAST SURGICAL HISTORY: Knee surgery, arthroscopic. 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 Denies any alcohol use. Positive for tobacco use, apparently 5-6 per day. FAMILY HISTORY: Positive for coronary artery disease. HOME MEDICATIONS: The patient reports has been off all his medicines for several weeks. ALLERGIES: NO KNOWN ALLERGIES. REVIEW OF SYSTEMS: GENERAL: Denies any fatigue, weakness, fevers, chills, night sweats. SKIN: No rashes or bruises. HEENT: Denies any nausea, vomiting, vision changes, blurred vision, double vision, epistaxis, sore throat, swollen gums. CARDIAC: Positive for chest pain as above. Positive for dyspnea on exertion. Denies any orthopnea, PND, or lower extremity edema. RESPIRATORY: Denies any shortness of breath, wheezing, coughing, hemoptysis. GI: Reports good appetite. No nausea, vomiting, diarrhea, constipation, hematochezia, or melena. URINARY: Denies any frequency, urgency, hematuria, or dysuria. VASCULAR: Denies any lower extremity edema, claudication. MUSCULOSKELETAL: Denies any muscle weakness. Positive for generalized joint pains, specifically knees. NEUROLOGIC: Denies any weakness, paralysis, fainting, blackouts, or seizures. HEMATOLOGIC: Denies any bruising. ENDOCRINE: Denies any heat or cold intolerance. No polyuria, polydipsia, or polyphagia. PHYSICAL EXAMINATION: VITAL SIGNS: Height 65 inches, weight 207 pounds. Initial vitals, blood pressure 174/120, currently blood pressure 111/82, heart rate 76, temperature 97.5, sat 99% on room air. GENERAL: Appears stated age, in no acute distress. SKIN: No rashes or bruises noted. HEENT: Normocephalic. Pupils equal, reactive. Extraocular motor intact. NECK: Trachea midline. No JVD. No carotid bruits. Oral mucosa pink. HEART: Regular rate and rhythm. No murmurs, clicks, or gallops noted. LUNGS: Bilateral breath sounds. Clear to auscultation. ABDOMEN: Soft, nontender, nondistended. No organomegaly noted. MUSCULOSKELETAL: Good muscle strength throughout. No lower extremity edema. VASCULAR: +2 bilateral radial pulses, +2 DP and PT pulses bilaterally. NEUROLOGIC: Cranial nerves II through XII seem intact. LABORATORY DATA: White count 9.2, hemoglobin 15, hematocrit 46, platelets 265. Sodium 136, potassium 4.1, chloride 102, creatinine 1.2, BUN 15. Troponins 0.018, next 0.014, next less than 0.001, next less than 0.001. BNP 83. DIAGNOSTIC DATA: Chest x-ray, no acute abnormalities. EKG, normal sinus rhythm. ASSESSMENT: 1. Hypertensive urgency. 2. Chronic systolic heart failure. 3. Chest pain. 4. Diabetes. 5. Noncompliance. PLAN: 1. The patient presents with complaints of chest pain. The patient has been noncompliant with his medications for the past several weeks. Cardiac enzymes x4 strongly negative. EKG without changes suggestive of acute event. 2. Long discussion with the patient regarding medication compliance. He verbalized understanding. 3. Continue heart failure therapy and hypertension therapy. 4. We will treat the patient medically from a cardiac standpoint. The patient is okay to go home when okayed by primary physician. 5. The patient reports that he is ready to go home. 6. We will continue to follow the patient while he is here in the hospital. Thank you very much for this consult. Dictated by Sumanth Trent, KETURAH Nabeel Brown MD DC/MODRichard /[id number]
== END 2019-01-28 10:30 | disposition home or self-care (01) ==
LOC: ER 12:52 → ERHOLD 15:15 → MED/SURG 15:48
PROVIDERS: ADMIT Family Medicine; ATTEND Family Medicine
DX: I16.0 Hypertensive urgency (principal); R07.89 Other chest pain; I11.0 Hypertensive heart disease with heart failure; E78.5 Hyperlipidemia, unspecified; E11.9 Type 2 diabetes mellitus without complications; I50.22 Chronic systolic (congestive) heart failure; Z91.14 Patient's other noncompliance with medication regimen
CPT/HCPCS: 36415 ×3; 71045; 80048; 80053 ×2; 80061; 82550 ×2; 82553 ×2; 82948 ×3; 83880; 84484 ×2; 85025 ×3; 85610; 85730; 93005; 99284; G0378 ×3; J3411 ×2

== ENCOUNTER 2019-03-01 08:20 | Emergency (ER) | payer SELFPAY ==
[~2019-03-01] VITALS: Ht 165.1 cm; Wt 93.9 kg
[2019-03-01 09:04] LABS: BASOPHILS % 0.4 % (0.0-1.0); EOSINOPHILS # (AUTO) 0.1 (0.0-0.4); EOSINOPHILS % 0.6 % (0.0-6.0); HEMATOCRIT 43.1 % (38.2-49.6); LYMPHOCYTES # (AUTO) 1.8 (1.0-3.2); LYMPHOCYTES % 22.8 % (18.0-39.1); MEAN CORPUSCULAR HGB CONC 32.5 g/dL (31-35); MEAN CORPUSCULAR VOLUME 92.3 fL (81-99); MONOCYTES # (AUTO) 0.7 (0.2-0.8); MONOCYTES % 8.3 % (4.4-11.3); NEUTROPHILS # (AUTO) 5.4 (2.1-6.9); NEUTROPHILS % 67.2 % (38.7-80.0); PLATELET COUNT 329 x10e3/uL (140-360); RED BLOOD COUNT 4.67 x10e6/uL (4.3-5.7); RED CELL DISTRIBUTION WIDTH 14.6 % (11.7-14.4)
[2019-03-01 09:07] LABS: INR 0.92; PROTHROMBIN TIME 12.8 seconds (11.9-14.5)
[2019-03-01 09:08] LABS: PARTIAL THROMBOPLASTIN TIME 28.2 seconds (23.8-35.5)
[2019-03-01] MEDS ORDERED: SODIUM CHLORIDE 0.9% 1000ML 1,000 ML IV STA (09:12)
[2019-03-01 09:15] LABS: ALANINE AMINOTRANSFERASE 24 IU/L (0-55); ALBUMIN 3.3 g/dL (3.5-5.0); ALBUMIN/GLOBULIN RATIO 0.8 (0.8-2.0); ALKALINE PHOSPHATASE 111 IU/L (40-150); ANION GAP 12.1 mmol/L (8-16); BLOOD UREA NITROGEN 12 mg/dL (7-26); BUN/CREATININE RATIO 11 (6-25); CARBON DIOXIDE 25 mmol/L (22-29); CHLORIDE 104 mmol/L (98-107); CREATINE KINASE 142 IU/L (30-200); CREATININE, SERUM 1.07 mg/dL (0.72-1.25); EST GLOMERULAR FILTRATION RATE > 60 ML/MIN (60-); GLUCOSE 287 mg/dL (74-118); POTASSIUM 4.1 mmol/L (3.5-5.1); SODIUM 137 mmol/L (136-145)
[2019-03-01] MEDS ORDERED: CEFEPIME HCL 1 GM VIAL IV SCH (09:15)
--- NOTE | 2019-03-01 09:15 | Diagnostic Imaging Report ---
EXAMINATION: CHEST 2 VIEWS INDICATION: Chest pain COMPARISON: Chest radiograph of 01/26/2019 FINDINGS: LINES/TUBES:EKG leads overlie the chest. LUNGS:The lungs are well-inflated. No focal consolidation or pulmonary edema. PLEURA:No pleural effusion or pneumothorax. MEDIASTINUM:The cardiomediastinal silhouette appears normal in size and shape. BONES/SOFT TISSUES:No acute osseous injury. ABDOMEN:No free air under the diaphragm. IMPRESSION: No focal pneumonia or pulmonary edema. Signed by: Rosenda Nevarez MD on 03/01/2019 9:12 AM
[2019-03-01 09:43] LABS: MAGNESIUM 1.9 MG/DL (1.3-2.1)
[2019-03-01 09:48] LABS: BILIRUBIN,URINE NEGATIVE (NEGATIVE); CLARITY,URINE CLEAR (CLEAR); COLOR,URINE YELLOW (YELLOW); KETONES,URINE NEGATIVE (NEGATIVE); LEUKOCYTE ESTERASE ,URINE NEGATIVE (NEGATIVE); NITRITE,URINE NEGATIVE (NEGATIVE); PROTEIN,URINE DIPSTICK NEGATIVE (NEGATIVE); URINE UROBILINOGEN 0.2 mg/dL (0.2 - 1)
[2019-03-01] MEDS ORDERED: CEFEPIME 1GM/NS 0.9% 50 ML 50 ML IV ONE (10:00)
[2019-03-01 10:03] LABS: EPITHELIAL CELLS,URINE RARE /LPF; RBC,URINE 0-5 /HPF (0-5); WBC,URINE (MAN) 0-5 /HPF (0-5)
--- NOTE | 2019-03-01 11:45 | NUR ---
Severe Sepsis Time: 907 Source: Suspected Respiratory Infection SIRS: HR 113 RR 24 (832) Organ Dysfunction: Lactic acid 2.6 (907) Blood cultures collected #1 Lactic Acid collected (841): 2.6 Resulted 908 Broad Spectrum Antibiotic given Cefepime (922) #2 Lactic Acid collected (1025) 1.0 Resulted 1040 Interventions complete, pt reported improvement D/C-ed home
[2019-03-01 11:51] VITALS: BP 119/93
== END 2019-03-01 12:02 | disposition home or self-care (01) ==
LOC: ER 08:20
DX: B34.9 Viral infection, unspecified (principal); I11.0 Hypertensive heart disease with heart failure; I50.9 Heart failure, unspecified; E87.2 Acidosis; R00.0 Tachycardia, unspecified
CPT/HCPCS: 36415; 71046; 80053; 81001; 82550; 82553; 83605; 83735; 83880; 84484; 85025; 85610; 85730; 87040; 87400; 93005; 99284; J0692; J7030